=== PATIENT | male | born 1945 ===

== ENCOUNTER 2023-05-23 14:25 | Outpatient (CLI) | payer MEDICARE, SELFPAY ==
--- NOTE | 2023-05-23 | ECHO_ITS ---
Patient Info Name: Mark Burdick Age: 77 years : 1945 Gender: Male Ht: 66 in Wt: 130 lbs BSA: 1.66 m2 HR: 77 bpm BP: 156 / 86 mmHg Heart Rhythm: Sinus Rhythm Technical Quality: Fair Exam Date: 05/23/2023 2:42 PM Exam Location: Echo Lab Patient Status: Outpatient Admit Date: 05/23/2023 Staff Ordering Physician: Avelino, Dayami Treviño MD [employer]: Melinda Venegas RDCS Attending Provider: Avelino, Dayami Treviño MD Referring Physician: Avelino LEI; Exam Type: CA echo doppler color flow Study Info Indications R01.1 - Cardiac murmur, unspecified Complete two-dimensional, color flow and Doppler transthoracic echocardiogram is performed. Summary 1. Complete two-dimensional, color flow and Doppler transthoracic echocardiogram is performed. 2. Left ventricular chamber dimension is normal. 3. Left ventricular systolic function is hyperdynamic, estimated at >70% with peak LVOT velocity mid septum at 4.2 m/sec with peak gradient 67 mmHg suggestive of hypertrophic cardiomyopathy. Clinical correlation advised. Consider cardiac MRI if clinically indicated.. 4. There is moderately increased left ventricular wall thickness. 5. The left ventricular diastolic function is grade I diastolic dysfunction. 6. Global longitudinal strain is mildly elevated at -15 %. 7. There is mild aortic valve sclerosis. 8. There is no aortic valve stenosis. 9. There is trace aortic valve regurgitation. 10. There is moderate mitral valve regurgitation. 11. There is trace tricuspid valve regurgitation. 12. Mild pulmonary hypertension, estimated pulmonary arterial systolic pressure is 42 mmHg. Left Ventricle Left ventricular chamber dimension is normal. Left ventricular systolic function is hyperdynamic, estimated at >70% with peak LVOT velocity mid septum at 4.2 m/sec with peak gradient 67 mmHg suggestive of hypertrophic cardiomyopathy. Clinical correlation advised. Consider cardiac MRI if clinically indicated.. There is moderately increased left ventricular wall thickness. The left ventricular diastolic function is grade I diastolic dysfunction. Global longitudinal strain is mildly elevated at -15 %. Right Ventricle Right ventricular chamber dimension is normal. Right ventricular systolic function is normal. Left Atria Left atrial chamber dimension is normal. Right Atria Right atrial chamber dimension is normal. Aortic Valve The aortic valve is trileaflet. There is mild aortic valve sclerosis. There is no aortic valve stenosis. There is trace aortic valve regurgitation. Pulmonic Valve The pulmonic valve is not well visualized. There is trace pulmonic regurgitation. Mitral Valve The mitral valve has thickened leaflets. There is moderate mitral valve regurgitation. Tricuspid Valve The tricuspid valve leaflets are normal. There is trace tricuspid valve regurgitation. Mild pulmonary hypertension, estimated pulmonary arterial systolic pressure is 42 mmHg. Pericardium/Pleural The pericardium appears normal. There is no pericardial effusion. Inferior Vena Cava Normal inferior vena cava with >50% collapse upon inspiration consistent with normal right atrial pressure, 5 mmHg. Aorta The aortic root size at the sinus of Valsalva is normal. There is mild aortic atherosclerosis. Left Ventricular Outflow Tract Name Value Normal LVOT 2D
== END 2023-05-23 14:26 | disposition home or self-care (01) ==
PROVIDERS: Visit Provider Internal Medicine
DX: I08.3 Combined rheumatic disorders of mitral, aortic and tricuspid valves (principal)
CPT/HCPCS: 93306